=== PATIENT | male | born 1985 | race Caucasian/White ===

== ENCOUNTER → 2023-11-02 08:59 | Outpatient (CLI) | payer SELFPAY ==
--- NOTE | 2023-11-25 13:09 | DIAB.MNT ---
Initial Diabetes Medical Nutrition Therapy Assessment Name: Alfredito Freeman Date: 11/02/23 Time: 135-7891g Dx: Type II Diabetes Alfredito presents for initial Dm visit. PMH of DM x 2 years per report with recent HgA1c of 8.8% per referral. Endorses food sensitivities/allergies: dairy, eggs, hazelnut, wheat Reports wanting more info on label reading, diabetes in general and dm medication. 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 Diet recall: 7a: cherrios with milk and coffee with maple syrup and whole milk Sn: apple sauce Sn: nothing or 100kcal chip bag 630-830p: Hello Fresh meal OR burger no bun with 3/4c corn or carrots or 1 potato Sn: nothing or 2 handfuls of chips OR 1-2 scoops of ice cream OR 100kcal popcorn bag 3L water pe rday, +/- sf Gatorade, regular tania karime, occasional ETOH Anthropometrics: Ht: 66 Wt: 260.5# 08/2023 Physical Activity: walking during golf game, no cart. Golf goal of 3-4x per month. Averaging 7000 s/day, days off [id number] and work days up to 9000. 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 States he does not have swings in energy and this is why he may not need to check BG. May need additional info on benefits of SMBG. Diabetes Medications: 1000mg Metformin BID 7mg Rybelsus Pertinent Labs: HgA1c: 8.8% per referral Nutrition Rx: Carbohydrates: Meal:45g Snack:15-30g Nutrition Diagnosis: - Inconsistent energy intake r/t work schedule aeb diet recall and pt report - Self monitoring deficit r/t stage of change barriers aeb pt report - Food and nutrition knowledge deficit r/t no previous mnt aeb pt report Intervention: This participant was very receptive. Provided appropriate educational handouts. Discussed the following topics: Completed intake assessment. Discussed barriers to care. Pathophysiology of T2DM HgA1c, its correlation to blood glucose numbers, and rationale for goal Benefits of self-monitoring, how often, and when to check. Suggested checking at different times to evaluate meals Medication review: action and precautions Plate Method, impact of macronutrients on blood sugar, meal timing, carbohydrate counting, pairing macronutrients and spreading out carbohydrates for better blood glucose management Recommended servings for carbohydrates at meals and snacks Label reading Recipe ideas and resources Heart health nutrition Role of physical activity Created SMART goals for patient self-care and success. Goals: Switch to sf beverages only Try to eat at work more consistently, even a snack Golf on Mondays Follow-up: SHERRI ZACARIAS follow-up in 3-4 weeks Gabriela Miranda RDN, DEANN Certified Diabetes Care and Concrete Analyst P: [phone] Thank you for this referral
== END ==
LOC: DIET 09:02
PROVIDERS: Referring Provider Naturopath
DX: E11.9 Type 2 diabetes mellitus without complications (principal); Z71.3 Dietary counseling and surveillance
CPT/HCPCS: 97802